=== PATIENT | female | born 1995 | race Caucasian/White ===

== ENCOUNTER 2020-12-14 09:54 | Inpatient (IN) | payer OTHER ==
[~2020-12-14] VITALS: Ht 170.2 cm; Wt 140.6 kg
--- NOTE | ~2020-12-14 | PROC ---
[address] [address] PROCEDURE REPORT Name: RENATE CHATTERJEE Room: [address] IN M.R.#: [id number] Admission: 12/14/20 Attend Phys: Heri Zelaya MD Discharge: 12/19/20 Date of : [birth year] Report #: [id number] THIS REPORT FOR: cc: FAM - No family physician/PCP FAM - No family physician/PCP [facility],Medical Records Staff ~ For GI report, please see the Provation report in Perceptive 7 content. By: [id number] Records Staff [facility] /AKOSUA
[2020-12-14 10:00] VITALS: BP 178/100
[2020-12-14] MEDS ORDERED: NEXPLANON68 MG SUBQ (10:03)
[2020-12-14] MEDS ORDERED: LEVOTHYROXINE13 MCG PO (10:03)
[2020-12-14] MEDS ORDERED: DRIZALMA SPRINK20 MG PO (10:03)
[2020-12-14 10:35] LABS: URINE BLOOD 3+ (Negative); URINE CLARITY CLEAR; URINE COLOR YELLOW; URINE GLUCOSE-RANDOM NEGATIVE (Negative); URINE LEUKOCYTES-REFLEX TRACE (Negative); URINE PROTEIN 1+ (Negative); URINE SPECIFIC GRAVITY >= 1.030 (1.005-1.030)
[2020-12-14 10:36] LABS: HEMATOCRIT 38.3 % (37.0-47.0); HEMOGLOBIN 12.7 gm/dL (12.0-15.0); MCH 26.5 pg (26.0-34.0); MCHC 33.1 g/dL (28.0-37.0); MPV 8.2 fl. (7.2-11.1); NUCLEATED RBCS 0 /100WBC; PLATELET COUNT* 538 thou/uL (150-400); RBC 4.78 mil/uL (4.20-5.00); RDW-CV 14.1 % (10.5-14.5); WBC 19.8 thou/uL (4.0-11.0)
[2020-12-14 10:54] LABS: CALCIUM 9.3 mg/dL (8.5-10.1); CREATININE 0.9 mg/dL (0.6-1.3); POTASSIUM 3.6 mmol/L (3.5-5.1)
[2020-12-14 11:03] LABS: URINE BILIRUBIN 2+ (Negative); URINE KETONES 3+ (Negative); URINE NITRITE-REFLEX POSITIVE (Negative)
[2020-12-14 11:04] LABS: ICTOTEST (BILI CONFIRMATORY) Negative (Negative)
[2020-12-14 11:07] LABS: SQUAMOUS 4-10 Moderate /LPF (0-3)
[2020-12-14 11:08] LABS: BACTERIA-REFLEX >30 Many /HPF (None Seen); URINE RBC 0-2 Rare /HPF (0-2)
[2020-12-14 11:09] LABS: CASTS None Seen /LPF (None Seen); CRYSTALS None Seen /LPF (None Seen); MUCUS >6 Heavy strn/LPF (None Seen)
[2020-12-14 12:25] LABS: ABSOLUTE LYMPHOCYTES 1.8 thou/uL (0.8-5.3); ABSOLUTE MONOCYTES 0.4 thou/uL (0.0-1.2); ABSOLUTE NEUTROPHILS 17.6 thou/uL (1.6-8.1); PLATELET ESTIMATE INCREASED; POLYCHROMASIA Occasional
[2020-12-14 16:30] VITALS: BP 125/76
[2020-12-14 17:12] VITALS: BP 134/83
[2020-12-14 20:30] VITALS: BP 120/71
[2020-12-15 03:14] LABS: CALCIUM 8.5 mg/dL (8.5-10.1); CREATININE 0.8 mg/dL (0.6-1.3); MAGNESIUM 2.5 mg/dL (1.8-2.4); PHOSPHORUS* 3.8 mg/dL (2.5-4.9); POTASSIUM 3.6 mmol/L (3.5-5.1)
[2020-12-15 05:21] LABS: ABSOLUTE EOSINOPHILS 0.1 thou/uL (0.0-0.7); ABSOLUTE LYMPHOCYTES 1.2 thou/uL (0.8-5.3); ABSOLUTE MONOCYTES 0.8 thou/uL (0.0-1.2); ABSOLUTE NEUTROPHILS 12.1 thou/uL (1.6-8.1); BASOPHILS 0.2 %; EOSINOPHILS 0.7 %; HEMATOCRIT 32.8 % (37.0-47.0); HEMOGLOBIN 10.8 gm/dL (12.0-15.0); LYMPHOCYTES 8.4 %; MCH 26.4 pg (26.0-34.0); MCV 80.1 fL (80.0-100.0); MONOCYTES 5.7 %; MPV 8.3 fl. (7.2-11.1); NUCLEATED RBCS 0 /100WBC; WBC 14.3 thou/uL (4.0-11.0)
[2020-12-15 05:31] LABS: PLATELET COUNT* 455 thou/uL (150-400)
[2020-12-15 07:02] LABS: ESR (SEDRATE) 92 mm/hr (0-20)
[2020-12-15 08:00] VITALS: BP 123/71
[2020-12-15 15:57] VITALS: BP 128/71
[2020-12-15 20:00] VITALS: BP 123/63
[2020-12-16 00:45] VITALS: BP 118/69
[2020-12-16 04:46] LABS: ABSOLUTE EOSINOPHILS 0.1 thou/uL (0.0-0.7); ABSOLUTE LYMPHOCYTES 1.3 thou/uL (0.8-5.3); ABSOLUTE MONOCYTES 0.6 thou/uL (0.0-1.2); ABSOLUTE NEUTROPHILS 9.3 thou/uL (1.6-8.1); BASOPHILS 0.3 %; EOSINOPHILS 0.8 %; HEMATOCRIT 30.2 % (37.0-47.0); LYMPHOCYTES 11.4 %; MCH 26.8 pg (26.0-34.0); MCHC 33.2 g/dL (28.0-37.0); MCV 80.7 fL (80.0-100.0); MONOCYTES 5.2 %; MPV 7.7 fl. (7.2-11.1); NUCLEATED RBCS 0 /100WBC; PLATELET COUNT* 391 thou/uL (150-400); POLYS 82.3 %; RBC 3.74 mil/uL (4.20-5.00); RDW-CV 14.3 % (10.5-14.5); WBC 11.3 thou/uL (4.0-11.0)
[2020-12-16 04:48] LABS: CALCIUM 8.4 mg/dL (8.5-10.1); CREATININE 0.7 mg/dL (0.6-1.3); POTASSIUM 3.5 mmol/L (3.5-5.1); TOTAL BILIRUBIN 0.7 mg/dL (<0.1-1.0); TOTAL PROTEIN 6.5 g/dL (6.4-8.2)
[2020-12-16 07:45] VITALS: BP 125/74
[2020-12-16 16:06] VITALS: BP 129/72
--- NOTE | 2020-12-16 16:49 | CON ---
[address] [address] CONSULTATION Name: RENATE CHATTERJEE Room: [address] IN M.R.#: [id number] Admission: 12/14/20 Attend Phys: Heri Zelaya MD Discharge: Date of : [birth year] Report #: [id number] THIS REPORT FOR: cc: CHARANJIT - No family physician/PCP FAM - No family physician/PCP Betina Franks MD ~ DATE OF CONSULTATION: 12/14/2020 REASON FOR CONSULTATION: Abdominal pain, nausea, vomiting, diarrhea and abnormal CT. HISTORY OF PRESENT ILLNESS: This is a 25-year-old female with no previous history of GI issues who reports that since November, her left lower abdomen has been hurting. She denies any significant change in bowel habits. She also denies any hematochezia or melena. Her symptoms worsened 2 days ago and she started having nausea and vomiting, which finally prompted her to come to the hospital on 12/14/2020. Since hospitalization, she had blood work and a CT of abdomen and pelvis. The CT suggests that she has evidence of left-sided colitis. There was also evidence of small-bowel obstruction. She currently lying comfortably in bed. Denies any nausea or vomiting. She has received pain medication and reports that she currently does not have any pain. PAST MEDICAL HISTORY: Significant for history of hypothyroidism, depression, ovarian cyst, gallbladder disease, status post cholecystectomy, and anxiety. ALLERGIES: No known drug allergy. MEDICATIONS: Please refer to MAR. SOCIAL HISTORY: The patient lives at home. Denies tobacco or alcohol use. She is morbidly obese. FAMILY HISTORY: Negative for GI malignancy or inflammatory bowel disease. PHYSICAL EXAMINATION: GENERAL: Reveals stated as age, obese female who is not under any distress. VITAL SIGNS: Include blood pressure of 120/71, respirations 18, pulse 89, temperature 97.5. LUNGS: Clear. CARDIOVASCULAR: Regular. ABDOMEN: Large, soft, mildly tender to palpation in the left lower quadrant. Bowel sounds are positive. NEUROLOGIC: The patient is alert and oriented x 3. [place] [address] CONSULTATION Name: RENATE CHATTERJEE Room: [address] IN [facility]#: [id number] Admission: 12/14/20 Attend Phys: Heri Zelaya MD Discharge: Date of : [birth year] Report #: [id number] neurologic deficit. LABORATORY DATA: Reveal sodium of 137, potassium 3.6, BUN is 9, creatinine 0.9, glucose 99. WBC is 19.8 with hemoglobin of 12.7 and platelets of 538. UA suggests that the patient has urinary tract infection. Her urine is positive for nitrites and also she has 16-25 wbc's. IMAGING: As discussed above. ASSESSMENT AND PLAN: We will obtain a KUB tomorrow to see if her small-bowel obstruction is resolving. She has been started on antibiotic. We would order inflammatory markers and consider endoscopic evaluation once we are able to prep the patient. We would like to rule out inflammatory bowel disease. The patient is agreeable with plan. <ELECTRONICALLY SIGNED> By: Betina Franks MD 12/16/20 1649 [id number] Franks MD /nt
[2020-12-16 19:40] VITALS: BP 133/79
[2020-12-17 00:21] VITALS: BP 113/61
[2020-12-17 04:04] VITALS: BP 136/79
[2020-12-17 04:54] LABS: ABSOLUTE EOSINOPHILS 0.1 thou/uL (0.0-0.7); ABSOLUTE LYMPHOCYTES 1.3 thou/uL (0.8-5.3); ABSOLUTE MONOCYTES 0.6 thou/uL (0.0-1.2); BASOPHILS 0.4 %; EOSINOPHILS 0.9 %; MCH 26.8 pg (26.0-34.0); MCHC 33.3 g/dL (28.0-37.0); MCV 80.6 fL (80.0-100.0); MONOCYTES 5.6 %; MPV 7.5 fl. (7.2-11.1); NUCLEATED RBCS 0 /100WBC; PLATELET COUNT* 380 thou/uL (150-400); POLYS 81.1 %; RBC 3.73 mil/uL (4.20-5.00); RDW-CV 14.5 % (10.5-14.5); WBC 11.1 thou/uL (4.0-11.0)
[2020-12-17 05:11] LABS: ALBUMIN 2.2 g/dL (3.4-5.0); CALCIUM 8.6 mg/dL (8.5-10.1); CREATININE 0.7 mg/dL (0.6-1.3); POTASSIUM 3.7 mmol/L (3.5-5.1); TOTAL BILIRUBIN 0.6 mg/dL (<0.1-1.0); TOTAL PROTEIN 6.9 g/dL (6.4-8.2)
[2020-12-17 07:30] VITALS: BP 129/76
[2020-12-17 15:41] VITALS: BP 123/76
[2020-12-17 20:00] VITALS: BP 108/72
[2020-12-18 04:57] LABS: ABSOLUTE EOSINOPHILS 0.1 thou/uL (0.0-0.7); ABSOLUTE LYMPHOCYTES 1.1 thou/uL (0.8-5.3); ABSOLUTE MONOCYTES 0.6 thou/uL (0.0-1.2); ABSOLUTE NEUTROPHILS 9.7 thou/uL (1.6-8.1); BASOPHILS 0.3 %; EOSINOPHILS 0.8 %; HEMATOCRIT 29.9 % (37.0-47.0); LYMPHOCYTES 9.4 %; MCH 26.8 pg (26.0-34.0); MCHC 33.5 g/dL (28.0-37.0); MCV 79.9 fL (80.0-100.0); MPV 7.8 fl. (7.2-11.1); NUCLEATED RBCS 0 /100WBC; PLATELET COUNT* 384 thou/uL (150-400); POLYS 84.5 %; RBC 3.75 mil/uL (4.20-5.00); RDW-CV 14.7 % (10.5-14.5); WBC 11.5 thou/uL (4.0-11.0)
[2020-12-18 05:23] LABS: ALBUMIN 2.1 g/dL (3.4-5.0); CALCIUM 8.5 mg/dL (8.5-10.1); CREATININE 0.7 mg/dL (0.6-1.3); POTASSIUM 3.5 mmol/L (3.5-5.1); TOTAL BILIRUBIN 0.7 mg/dL (<0.1-1.0); TOTAL PROTEIN 6.4 g/dL (6.4-8.2)
[2020-12-18 05:33] LABS: PREALBUMIN 8.2 mg/dL (18.0-35.7)
[2020-12-18 08:09] VITALS: BP 134/84
[2020-12-18 19:00] VITALS: BP 131/72
[2020-12-18 19:45] VITALS: BP 122/69
[2020-12-19 00:08] VITALS: BP 148/85
[2020-12-19 04:14] LABS: ABSOLUTE EOSINOPHILS 0.1 thou/uL (0.0-0.7); ABSOLUTE LYMPHOCYTES 0.9 thou/uL (0.8-5.3); ABSOLUTE MONOCYTES 0.6 thou/uL (0.0-1.2); ABSOLUTE NEUTROPHILS 6.4 thou/uL (1.6-8.1); BASOPHILS 0.3 %; EOSINOPHILS 1.1 %; HEMATOCRIT 33.1 % (37.0-47.0); LYMPHOCYTES 11.7 %; MCH 26.9 pg (26.0-34.0); MCHC 33.1 g/dL (28.0-37.0); MCV 81.1 fL (80.0-100.0); MONOCYTES 7.2 %; MPV 7.5 fl. (7.2-11.1); NUCLEATED RBCS 0 /100WBC; PLATELET COUNT* 349 thou/uL (150-400); POLYS 79.7 %; RBC 4.08 mil/uL (4.20-5.00); RDW-CV 14.6 % (10.5-14.5)
[2020-12-19 04:24] LABS: CALCIUM 8.2 mg/dL (8.5-10.1); CREATININE 0.8 mg/dL (0.6-1.3); TOTAL BILIRUBIN 0.6 mg/dL (<0.1-1.0); TOTAL PROTEIN 6.4 g/dL (6.4-8.2)
[2020-12-19 04:29] LABS: PREALBUMIN 8.5 mg/dL (18.0-35.7)
[2020-12-19 08:00] VITALS: BP 129/84
[2020-12-19] MEDS ORDERED: CIPROFLOXACIN500 M1 PO (12:42)
[2020-12-19] MEDS ORDERED: METRONIDAZOLE500 M4 PO (12:42)
[2020-12-19 15:35] VITALS: BP 129/84
[2020-12-19] MEDS ORDERED: PREDNISONE 10 M10 MG PO (15:43)
[2020-12-19 16:24] VITALS: BP 129/84
[2020-12-20 03:06] LABS: HEPATITIS B SURFACE AG Negative (Negative)
--- NOTE | 2020-12-23 14:07 | PATH ---
[address] [address] PATHOLOGY RPT PROCEDURE Name: SHENAMARIA ELENAREYMUNDO OCONNOR Room: [address] IN M.R.#: [id number] Admission: 12/14/20 Date of : [birth year] Discharge: 12/19/20 Report #: [id number] Path Case #: [id number] [facility] Accession Number: [id number] . 01 Material submitted: . colon - FOCAL STRICTURE, EDEMA, PROXIMAL TRANSVERSE COLON BIOPSY. Modifiers: transverse . 01 Clinical history: . COLONOSCOPY . 02 Diagnosis: Tissue submitted as, "focal stricture, edema, proximal transverse colon biopsy": - Moderate nonspecific active colitis, negative for granulomas, viral inclusions and dysplasia. See comment. . (ILYA:mmnayan; 12/20/2020) QL 12/20/2020 1709 Local . 02 Comment: The biopsies reveal benign colonic mucosa with active inflammation evidenced by neutrophils predominantly in the lamina propria, without crypt abscesses seen and without evidence of chronic inflammation, such as basal lymphoplasmacytosis or crypt distortion. Ischemic features are not apparent and no inflammatory pseudomembrane is seen. These findings could be seen with use of non-steroidal anti-inflammatory agents. . (ILYA:mml; 12/20/2020) . 02 Electronically signed: . Florentino Jim MD, Pathologist NPI- [id number] . 01 Gross description: . The specimen is received in formalin, labeled "Maria Elena Cheney, focal stricture, edema. proximal transverse colon biopsy" and consists of multiple fuentes irregular tissues aggregating 0.6 x 0.5 x 0.2 cm which are submitted in toto in A1.([facility]; 12/19/2020) DKA/DKA 12/19/2020 1616 Local . 02 Pathologist provided ICD-10: K52.9 . 02 CPT . 487164 Specimen Comment: A courtesy copy of this report has been sent to [phone] [facility] [address] PATHOLOGY RPT PROCEDURE Name: SHENA,MARIA ELENAREYMUNDO OCONNOR Room: [address] IN M.R.#: [id number] Admission: 12/14/20 Date of : [birth year] Discharge: 12/19/20 Report #: [id number] Path Case #: [id number] Specimen Comment: [id number] Specimen Comment: Report sent to / DR GARCIA Performed at: [address], [place], [place] [id number] MD Keo Taylor MD Phone: [phone] Performed at: [facility] [address], [place], [place] [id number] MD Florentino Jim MD Phone: [phone]
== END 2020-12-19 16:10 | disposition home or self-care (01) | DRG 872 ==
LOC: M.ERS 09:54 → M.3W 12:07 → M.TBA-ER 12:07 → M.3W 17:35
PROVIDERS: Nurse Practitioner Adult Health; Nurse Practitioner Psychiatric/Mental Health; Surgery; ADMIT Internal Medicine; ATTEND Internal Medicine
PROC: 0DBL8ZX Excision of Transverse Colon, Via Natural or Artificial Opening Endoscopic, Diagnostic (ICD-10-PCS; principal; 2020-12-18)
DX: A41.9 Sepsis, unspecified organism (principal); A04.9 Bacterial intestinal infection, unspecified; K56.609 Unspecified intestinal obstruction, unspecified as to partial versus complete obstruction; Z68.42 Body mass index [BMI] 45.0-49.9, adult; N30.01 Acute cystitis with hematuria; K56.699 Other intestinal obstruction unspecified as to partial versus complete obstruction; E03.9 Hypothyroidism, unspecified; F41.9 Anxiety disorder, unspecified; F32.A Depression, unspecified; K64.8 Other hemorrhoids; K63.89 Other specified diseases of intestine; N83.202 Unspecified ovarian cyst, left side; E66.01 Morbid (severe) obesity due to excess calories; Z90.49 Acquired absence of other specified parts of digestive tract; Z23 Encounter for immunization; Z20.822 Contact with and (suspected) exposure to COVID-19